=== PATIENT | female | born 1935 | race Caucasian/White ===

== ENCOUNTER → 2017-05-17 | Outpatient (CLI) | payer MEDICARE, BC ==
[~2017-05-17] MED LIST: ACET-1359 PO; LISI-327 PO; SENN1TAB6 PO; allegra PO; aspirin PO; levothyroxine PO
--- NOTE | 2017-05-17 17:33 | RADRPT ---
PROCEDURE: Right knee radiographs. CLINICAL INDICATION: Right knee pain. TECHNIQUE: Three views. Weight bearing. Frontal, lateral, and patellar view. COMPARISON: No prior studies are available for comparison. FINDINGS: There is no fracture or dislocation. The soft tissues are normal. There are degenerative changes with osteophytes arising from all 3 joint compartment margins. There is medial joint compartment narrowing and subarticular sclerosis. There is lateral patellofemoral joint compartment narrowing and mild deformity. There is no lytic or blastic lesion. There is no radiopaque foreign body. IMPRESSION: 1. Moderate to severe degenerative changes of the right knee. 2. No acute abnormality. RPTAT: QQ .Jayy Pina MD, Date Time Electronically viewed and signed by .Jayy Pina MD, on 05/17/2017 17:33 .R/
--- NOTE | 2017-05-18 05:06 | HKNOTE ---
DATE OF SERVICE: 05/17/2017 MAIN COMPLAINT: Pain in the right knee. HISTORY OF MAIN COMPLAINT: Patient is an 81-year-old female, who has had rheumatoid arthritis for 54 years. Incidentally, she developed the beginnings of the arthritis the day she got . She is under the care of a bait maker at [facility]. He put her on a prolonged course of aspirin. She developed pain in the right knee 3-1/2 years ago. The pain has been much worse in the past 6 months. She has been under the care of Dr. Nick Green at the [facility] [place]. He has given her multiple cortisone injections, as well as multiple Eufflexa injections into the right knee. These have not helped very much (the injections were given over a period of 3 years). PRESENT COMPLAINTS: The pain in her right knee is present every day and occurs with every step that she takes. The pain is localized to the knee without radiation up or down the leg. Pain varies between moderate to severe. Pain is aggravated by walking, weightbearing and stair climbing. She cannot walk more than a quarter of a block without stopping. She gets night pain. She takes Extra-Strength Tylenol or ibuprofen for the pain. She also ices the knee (she states that she has a high pain tolerance). She does not have any back pain or back problems. She has no numbness or tingling in her legs. She uses a cane. She limps some of the time. She does not have a shoe lift. She cannot clip her toenails or tie her shoelaces on the right side. PAST ORTHOPEDIC HISTORY: 1. Right shoulder replacement by Dr. Heller 2013. 2. Shoulder replacement by Dr. Manuel at the [facility] [place]. 3. Rotator cuff repair, left shoulder, 2003. 4. Rotator cuff repair, Dr. Cruz [place] 2000 and 2001. PRIOR CORTISONE INTAKE: Patient has taken it by mouth for prolonged periods of time, but no longer is on any. ALCOHOL INTAKE: None. OTHER JOINT PROBLEMS: "My left knee is also [id number]." BLOOD TESTS FOR ARTHRITIS: Yes (rheumatoid arthritis). PRIOR INJURIES TO HIPS AND KNEES: None. WORK STATUS: Patient is a retired homemaker. PAST MEDICAL HISTORY: Hypertension. PAST SURGICAL HISTORY: As noted above, all orthopedic operations. DRUG ALLERGIES: Penicillin (gets hives). Sulfa drugs. MEDICATIONS: 1. Lisinopril. 2. Johnna. 3. Levothyroxine. 4. Aspirin. 5. Multivitamins. 6. PreserVision. 7. Calcium citrate. 8. Atorvastatin. 9. Effexor. 10. Vagifem tablets. FAMILY HISTORY: Father at 70 of unstated cause. Mother at 52 of melanoma. SYSTEMS REVIEW: Failing vision from macular degeneration, hypertension, 2 pregnancies; otherwise, negative. HABITS: She does not smoke or drink alcoholic beverages. CORPORATE ETHICS OFFICER: Dr. Cisco Keene, [address] [facility], [place] [address]. PHYSICAL EXAMINATION: GENERAL: Patient is an extremely fit-looking, but overweight female. She looks at least 10 years younger than her stated age. She comes in with her , Melo Marques, who has been a patient of mine for a long time. I have performed bilateral knee replacements and a hip replacement on him, all of which he is very pleased with. Note, that she is referred in by her . VITAL SIGNS: Height 5 foot 5 inches. Weight 220 pounds. Blood pressure 160/70, temperature 98.2. HIPS: Both hips have a full range of motion without pain or tenderness anywhere on either hip. KNEES: Right knee: Varus alignment. Extension lacks 15 degrees. Flexion lacks 25 degrees. Marked pain on attempting further flexion or extension. All ligaments intact. 1+ effusion. Tender over the medial joint line. Multiple small scars (unexplained). 4+ crepitus in the knee and under patella. Examination of the left knee: Varus alignment. Extension is full. Flexion lacks 10 degrees. Marked pain on attempting further flexion or extension. All ligaments intact. 1+ effusion. Tender over the medial joint line. Multiple small scars (unexplained). 4+ crepitus in the knee and under patella. IMAGING: Plain x-rays of the right knee obtained today at the [facility] were reviewed. These show bone-on- bone degenerative osteoarthritis of the medial compartment, with classic secondary signs, including subchondral sclerosis, small osteophyte formation and no interosseous cysts. The patellofemoral joint shows narrowing and the patella is subluxed laterally. DIAGNOSES: 1. Extremely severe and sympathetic degenerative osteoarthritis of the right knee. 2. Degenerative osteoarthritis of the left knee. 3. Hypertension. 4. History of dislocated left shoulder. 5. History of rotator cuff tear. 6. Allergic to penicillin. 7. Allergic to sulfa drugs. MANAGEMENT: Patient was advised that she will certainly need to have a right knee replacement sometime in the near future. She can expect the arthritis to get worse. Certainly it will not improve regardless of the treatment provided. The operation of total knee replacement was discussed with her and her in a fair amount of detail, including some of the major recent developments. The actual operation was discussed with them to explain exactly why the results in recovery are so much better now than they were a few years ago. The patient is given a copy of my booklet, Knee Arthritis, Knee Replacement Surgery. My plant attendant or assistant operator, Morales, will schedule her surgery to be performed in the near future. Dictated By: Alec Mireles MD /patrick/aris /Document#: [id number]
== END | disposition home or self-care (01) ==
LOC: HKI 14:58
DX: M17.0 Bilateral primary osteoarthritis of knee (principal); I10 Essential (primary) hypertension
CPT/HCPCS: 73562; G0463

== ENCOUNTER → 2017-06-13 | Outpatient (CLI) | payer MEDICARE, BC ==
[~2017-06-13] MED LIST changes: +ATOR10TA65 PO; +CALC-134 PO; +ESTR10TA VAGINAL; +FLUT16SP17 NASAL; +MULT-761 PO; +VENL75TA2 PO
== END | disposition home or self-care (01) ==
LOC: HKI 13:20
DX: Z01.818 Encounter for other preprocedural examination (principal); M17.11 Unilateral primary osteoarthritis, right knee
CPT/HCPCS: G0463

== ENCOUNTER 2017-06-14 05:32 | Inpatient (IN) | payer MEDICARE, BC ==
--- NOTE | 2017-06-08 09:02 | PREOPHP ---
DATE OF ADMISSION: 06/14/2017 Patient to have surgery with Dr. Alec Mireles 06/14/2017. REASON FOR MEDICAL CONSULTATION: Consultation requested by Dr. Alec Mireles for evaluation and clearance of an 81-year-old woman about to undergo surgery. Thank you, Dr. Mireles, for allowing us to participate in the care of this patient. Lillian Marques is an 81-year-old woman, issues with her right knee, currently being admitted for correction of the above problem. SURGICAL HISTORY: Included 2 knee surgeries on the left side, one arthroscopic and one open, as well as 2 C-sections and a hysterectomy. She also had a reverse right total shoulder replacement done and had bunion surgery and hammertoe surgery. Other than that, she has been relatively healthy. Has no medical hospitalizations to speak of. Has not broken any bones. MEDICATIONS: She is currently taking the following medications: 1. Lisinopril 20/12.5, 2 a day. 2. Johnna 60 mg 1 a day. 3. Levothyroxine 0.125 mcg 2 daily. 4. Aspirin 325, mg 2 daily. 5. Atorvastatin 10 mg a day. 6. Effexor 75 mg a day. 7. Vagifem tablets 1 a week 10 mcg. 8. Flonase 15 mcg 1 inhalation per day. 9. Some eye drops. 10. Some vitamins. 11. Supplements. ALLERGIES: SHE IS ALLERGIC TO: PENICILLIN. SULFA. SOCIAL HISTORY: The patient is , has 2 children and 5 grandchildren. All in good health. She does not smoke or drink alcohol. Does drink coffee. 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 FAMILY HISTORY: Both parents are . Father at 70 of melanoma. Mother at age 52 of a stroke, had hypertension and had rheumatic fever when she was younger. One brother is alive and well. There is a family history of heart, cancer, hypertension, and stroke. No diabetes or thyroid. REVIEW OF SYSTEMS: HEENT: Denies any significant headaches. CARDIORESPIRATORY: Denies any chest pain or shortness of breath. GASTROINTESTINAL: No melena or hematemesis. GENITOURINARY: No urgency frequency. GYNECOLOGIC: Post hysterectomy. MUSCULOSKELETAL: Positive for right knee pain. NEUROPSYCHIATRIC: Mild anxiety/depression, well controlled with her Effexor. GENERAL HEALTH: Has been good. PHYSICAL EXAMINATION: VITAL SIGNS: The patient's blood pressure was 128/70, pulse was 76 and regular, respirations were 18, temperature 98.2. Height 5 feet 5 inches, weight 224 pounds. GENERAL: Patient was noted to be a well-developed, well- nourished female, alert and cooperative, in no apparent acute distress. Oriented to time, place, and person. HEENT: Head was atraumatic. The eyes: Pupils were equal, reactive to light and accommodation. Fundi were benign. Tympanic membranes were unremarkable. Nose was negative. Mouth was unremarkable. Fair oral hygiene was present. NECK: Supple without any rigidity. Trachea was midline. Thyroid was unremarkable. Neck veins were flat. Carotid pulses were equal. No bruits were heard. BACK: Exam was unremarkable. CHEST: Symmetrical. BREAST AND AXILLARY: Exam did not reveal any masses. LUNGS: Clear to percussion and auscultation. HEART: PMI is at the 5th intercostal space at the midclavicular line. Regular sinus rhythm was noted. No significant murmurs, rubs, gallops being elicited. ABDOMEN: Soft. Good bowel sounds were noted. No significant organomegaly masses or tenderness. Scar from prior surgery was noted. GENITALIA: Normal female external genitalia. RECTAL: Per transit department clerk and PCP up-to-date. EXTREMITIES: Did not reveal any clubbing, edema, or cyanosis. Scars from prior surgery are noted. Peripheral pulses were physiologic. SKIN: Moist and warm without any eruptions. No gross lymphadenopathy was noted. NEUROLOGIC: Exam was grossly intact. IMPRESSION: 1. Degenerative joint disease, right knee. 2. Hypertension. 3. Hyperlipidemia. 4. Hypothyroidism. 5. Metabolic syndrome. 6. Stable health LABORATORY: Review of laboratory and other data revealed the following. Patient's electrolytes basically normal. Glucose, BUN, creatinine, liver function tests, serum iron, CBC, UA, PT and PTT were normal. Patient's EKG revealed minor ST-T wave changes, but basically normal. Chest x-ray revealed status post right shoulder replacement, degenerative joint disease, no acute infiltrates and no acute cardiopulmonary changes being noted. DISCUSSION: Dr. Mireles, I see no contraindications to the patient undergoing current proposed surgery, and under desired form of anesthesia. Follow her along with you during her stay at [facility]. Thank you again Dr. Mireles for allowing us to participate in care of this patient. Dictated By: David Tripathi MD /patrick/aris /Document#: [id number]
[2017-06-14] VITALS (23 sets, daily range): BP systolic 102–164; BP diastolic 52–100; PULSE 74–100; RESP 11–24; Ht 165.1 cm; Wt 103.0 kg
[~2017-06-14] VITALS: Ht 165.1 cm; Wt 103.0 kg
[~2017-06-14 05:32] MED LIST changes: -ATOR10TA65 PO; -CALC-134 PO; -ESTR10TA VAGINAL; -FLUT16SP17 NASAL; -MULT-761 PO; -VENL75TA2 PO
[2017-06-14] MEDS ORDERED: KNEE PAIN COCKTAIL VANCO INJ SCH ×6 (06:00)
[2017-06-14] MEDS ORDERED: DEXAMETHASONE 4 MG/ML 1 ML INJ IV ONE (06:00)
[2017-06-14] MEDS ORDERED: oxyCODONE (CR) 10 MG TAB [oxyCONTIN] PO ONE (06:00)
[2017-06-14] MEDS ORDERED: LACTATED RINGER'S 1,000 ML IV* SCH (06:00)
[2017-06-14] MEDS ORDERED: ACETAMINOPHEN 1000MG/100ML IV 100 ML IVPB ONE (06:00)
[2017-06-14] MEDS ORDERED: VANCOMYCIN 1 GM (PMX) 250 ML IVPB ONE (06:00)
[2017-06-14] MEDS ORDERED: TRANEXAMIC ACID 2,000 MG in SOD CHLORIDE 0.9% 100 ML IVPB ONE (06:00)
[2017-06-14] MEDS ORDERED: LANSOPRAZOLE 30 MG CAP PO ONE (06:00)
[2017-06-14] MEDS ORDERED: ONDANSETRON 4 MG INJ IV ONE (06:00)
[2017-06-14] MEDS ORDERED: PROPOFOL 20 ML ONE (06:14)
[2017-06-14] MEDS ORDERED: MIDAZOLAM 1 MG/ML 2 ML INJ ONE (06:14)
[2017-06-14] MEDS ORDERED: DEXAMETHASONE 4 MG/ML 1 ML INJ ONE (06:14)
[2017-06-14] MEDS ORDERED: NEOSTIGMINE 3 MG/3 ML SYRINGE ONE (06:14)
[2017-06-14] MEDS ORDERED: GLYCOPYRROLATE 0.4 MG INJ ONE (06:14)
[2017-06-14] MEDS ORDERED: FENTAnyl 50 MCG/ML VIAL ONE (06:14)
[2017-06-14] MEDS ORDERED: ROCURONIUM 50 MG INJ ONE (06:14)
[2017-06-14] MEDS ORDERED: LIDOCAINE 2% (SDV) 5 ML INJ ONE (06:14)
[2017-06-14] MEDS ORDERED: ONDANSETRON 4 MG INJ ONE (06:15)
[2017-06-14] MEDS ORDERED: SUGAMMADEX SODIUM 200 MG/2 ML VIAL IV ONE (06:15)
[2017-06-14] MEDS ORDERED: LIDOCAINE 2%/EPI 30 ML INJ ONE (06:21)
[2017-06-14] MEDS ORDERED: LABETALOL HCL 20MG INJ IV PRN (06:30)
[2017-06-14] MEDS ORDERED: hydrALAzine 20 MG INJ IV PRN (06:30)
[2017-06-14] MEDS ORDERED: EPHEDrine SULFATE 50 MG/5 ML SYG IV PRN (06:30)
[2017-06-14] MEDS ORDERED: ATROPINE 1 MG/10 ML SYRINGE IV PRN (06:30)
[2017-06-14] MEDS ORDERED: DIPHENHYDRAMINE 50 MG INJ IV PRN (06:30)
[2017-06-14] MEDS ORDERED: MIDAZOLAM 1 MG/ML 2 ML INJ IV PRN (06:30)
[2017-06-14] MEDS ORDERED: HYDROmorphONE (0.2 MG/ML) 10ML SYG IV PRN ×3 (06:30)
[2017-06-14] MEDS ORDERED: FENTAnyl 50 MCG/ML VIAL IV PRN ×2 (06:30)
[2017-06-14] MEDS ORDERED: MEPERIDINE 25 MG INJ IV PRN (06:30)
[2017-06-14] MEDS ORDERED: OXYCODONE/ACETAMINOPHEN (5/325) TAB PO PRN ×2 (06:30)
[2017-06-14] MEDS ORDERED: ONDANSETRON 4 MG INJ IV PRN (06:30)
[2017-06-14] MEDS ORDERED: morphine (1 MG/ML) 10ML SYRINGE IV PRN ×3 (06:30)
[2017-06-14] MEDS ORDERED: BACITRACIN 50000 UNITS INJ ONE (06:41)
--- NOTE | 2017-06-14 06:44 | HPN ---
Date/Time of Note Date/Time of Note DATE: 06/14/17 TIME: 06:44 Interval H&P Admission Note Pt. seen H&P reviewed: No system changes ARGELIA VARGAS PA-C Jun 14, 2017 06:44
[2017-06-14] MEDS ORDERED: ROPIVACAINE 0.2% 100 ML ONE (06:52)
[2017-06-14] MEDS ORDERED: VANCOMYCIN 1 GM INJ ONE (06:52)
[2017-06-14] MEDS ORDERED: TOBRAMYCIN 1.2 GM POWDER ONE (06:52)
[2017-06-14] MEDS ORDERED: METHYLENE BLUE 1% 10 ML INJ ONE (06:52)
[2017-06-14] MEDS ORDERED: POLYMYXIN B 500000 UNIT INJ ONE (06:52)
[2017-06-14] MEDS ORDERED: BUPIVACAINE 0.25% (MPF) 30 ML INJ ONE ×2 (06:53→08:11)
[2017-06-14] MEDS ORDERED: SUCCINYLCHOLINE CHLORIDE 100 MG/5 ML SYG IV ONE (07:00)
[2017-06-14] MEDS ORDERED: FLUT16SP17 NASAL (07:07)
[2017-06-14] MEDS ORDERED: ATOR10TA65 PO (07:07)
[2017-06-14] MEDS ORDERED: VENL75TA2 PO (07:07)
[2017-06-14] MEDS ORDERED: CALC-134 PO (07:07)
[2017-06-14] MEDS ORDERED: MULT-761 PO (07:07)
[2017-06-14] MEDS ORDERED: ESTR10TA VAGINAL (07:07)
[2017-06-14] MEDS ORDERED: SOD CHLORIDE 0.9% 50 ML, TRANEXAMIC ACID 2,000 MG IRR SCH ×2 (07:30)
[2017-06-14] MEDS ORDERED: BUPIVACAINE 0.5%/EPI (SDV) 10 ML INJ ONE (08:11)
[2017-06-14] MEDS ORDERED: ROPIVACAINE 0.2% 100ML BAG INJ ONE (09:13)
[2017-06-14] MEDS ORDERED: FUROSEMIDE 20 MG INJ ONE (09:52)
[2017-06-14] MEDS ORDERED: KETOROLAC 30 MG INJ ONE (10:29)
--- NOTE | 2017-06-14 11:24 | PDOCDIS ---
Discharge Instructions DIAGNOSIS Discharge Diagnosis Status Post Right Total Knee Replacement CONDITION Patient Condition: Stable HOME CARE INSTRUCTIONS: Diet Instructions: Regular ACTIVITY: Activity Restrictions: Slowly Increase Activity Rest between Activity Avoid heavy lifting No Sexual Activity Do not Drive Do not operate Machinery Do not operate Power Tool Avoid Heavy Housework Keep Limb Elevated (at rest with Ice therapy) Weight Bearing (as tolerated with front wheeled walker) Bathing Restrictions: Shower (Using tegaderm withpad. Apply prior to shower and remove after shower when area is dry. Repeat these steps until violet are removed around 10 days.) FOLLOW UP/APPOINTMENTS Follow-up Plan 07/04/17 at 10:45AM ARGELIA VARGAS PA-C Jun 14, 2017 11:24
[2017-06-14] MEDS ORDERED: COUMADIN NOTE XX SCH (11:30)
[2017-06-14] MEDS ORDERED: BISACODYL 10 MG SUPP PR PRN (11:30)
[2017-06-14] MEDS ORDERED: MEPERIDINE 10 MG/ML 30 ML PCA IV PRN (11:30)
[2017-06-14] MEDS ORDERED: DIPHENHYDRAMINE 50 MG INJ IM PRN (11:30)
[2017-06-14] MEDS ORDERED: MAGNESIUM HYDROXIDE 30ML CUP PO PRN (11:30)
[2017-06-14] MEDS ORDERED: HYDROmorphONE 0.2 MG/ML PCA IV PRN (11:30)
[2017-06-14] MEDS ORDERED: ASPIRIN (EC) 325 MG TAB PO ONE ×2 (11:30→12:00)
[2017-06-14] MEDS ORDERED: SENNA/DOCUSATE NA (8.6MG/50MG) TAB PO PRN (11:30)
[2017-06-14] MEDS ORDERED: oxyCODONE 5 MG TAB PO PRN ×2 (11:30)
[2017-06-14] MEDS ORDERED: NALOXONE (0.4 MG/ML) INJ IV PRN (11:30)
[2017-06-14] MEDS ORDERED: NA PHOSPHATE/BIPHOS 133 ML ENEMA PR PRN (11:30)
[2017-06-14] MEDS ORDERED: DOCUSATE SODIUM 100 MG CAP PO ONE ×2 (11:30→12:00)
[2017-06-14] MEDS ORDERED: BETHANECHOL 25 MG TAB PO PRN (11:30)
[2017-06-14] MEDS: ONDANSETRON 4 MG INJ IV SCH ×3 (12:09→23:30)
[2017-06-14] MEDS: ACETAMINOPHEN 1000MG/100ML IV 100 ML IVPB SCH ×2 (12:09→19:06)
--- NOTE | 2017-06-14 12:21 | RADRPT ---
PROCEDURE: Right knee x-ray CLINICAL INDICATION: Knee pain TECHNIQUE: Two views of the right knee were obtained. COMPARISON: CR KNEE 05/17/2017 FINDINGS: The patient is status post total knee replacement . There are postsurgical changes in the subcutane ous soft tissues. There is a surgical drain in place. There is normal mineralization. No acute fracture or dislocation is seen. RPTAT: AA IMPRESSION: Postsurgical changes of the knee status post knee replacement. .Shayan Brunson MD, Date Time Electronically viewed and signed by .Shayan Brunson MD, on 06/14/2017 12:20 .S/
--- NOTE | 2017-06-14 12:50 | SIPON ---
Date/Time of Note Date/Time of Note DATE: 06/14/17 TIME: 12:43 Operative Report Preoperative Diagnosis Severe degenerative osteoarthritis of the right knee Postoperative Diagnosis Same Operation/Procedure Performed Right Knee Arthroplasty Surgeon: TUNG GALLOWAY MD market research assistant: ARGELIA VARGAS PA-C Estimated Blood Loss: 10 - 50 ml's Transfusion Required: no Specimen: none Grafts/Implants: none Complications: no TUNG GALLOWAY MD Jun 14, 2017 12:50
[2017-06-14] MEDS ORDERED: TRANEXAMIC ACID 1,030 MG in SOD CHLORIDE 0.9% 100 ML IVPB SCH ×2 (13:00→16:00)
--- NOTE | 2017-06-14 13:26 | RADRPT ---
PROCEDURE: XR Knee 2 Views. CLINICAL INDICATION: Right knee replacement. Intraoperative exam. TECHNIQUE: Intraoperative AP and lateral view of the right knee were obtained. The images reviewed on a PACS workstation. COMPARISON: May 17, 2017 FINDINGS: Intraoperative prosthetic components of a right knee replacement are identified and appear in grossl y appropriate position and alignment. No destructive bony lesions are observed. Soft tissue air is procedural in nature. IMPRESSION: Intraoperative components of a right knee replacement in grossly appropriate position and alignment. Please see procedure note for details. RPTAT: AA .Carlos Campbell MD, MD Date Time Electronically viewed and signed by .Carlos Campbell MD, MD on 06/14/2017 13:26 .P/
--- NOTE | 2017-06-14 13:27 | OPR ---
Date/Time of Note Date/Time of Note DATE: 06/14/17 TIME: 12:58 Operative Report Surgeon: ALEC MIRELES MD pharmacy affairs assistant: ARGELIA VARGAS PA-C Estimated Blood Loss: 10 - 50 ml's Transfusion Required: no Complications: no Indications Date of Operation: [] Surgeon: Alec Mireles MD Freight Flagman: Argelia Vargas PA-C Anesthesiologist: [Marcella] Preoperative Diagnosis: Exceedingly severe degenerative osteoarthritis of the [ ] knee. Postoperative Diagnosis: Exceedingly severe degenerative osteoarthritis of the [ R] knee. Operation Performed: Total knee replacement (arthroplasty of the knee, condylar plateau medial and lateral compartments with patella resurfacing, CPT 44371). Justification for Surgery: The knee was found to have an end-stage osteoarthritis. The patient is a very active 81-year-old diffuse lifestyles markedly affected by the arthritic knee. An extensive course of conservative care has been tried prior to embarking on the knee replacement operation. There can be no reasonable expectation that any further conservative treatment will make any improvement to this patient's pain level and lifestyle. The risks and complications of the surgery were discussed with the patient at the preoperative visit as well as the risks and possible complications of blood transfusion using hospital blood. The patient is agreeable to using hospital blood if needed. Description of Procedure: The patient was given intravenous antibiotics 1 hour prior to surgery. An epidural anesthetic was initiated in the ICU holding area. The patient was taken to the operating room and given a light general anesthetic. The leg, foot, and ankle were prepared and draped in the usual sterile fashion. The center of the ankle was marked at the midpoint between the 2 malleoli with a sterile marking pen. A tourniquet around the thigh was inflated to 250 mmHg after the leg had been exsanguinated using an Esmarch bandage. The tourniquet was inflated at the initiation of procedure for a short period and was then again reinflated at the time of cementing the components parts. The total tourniquet time was 55 minutes minutes. A longitudinal incision was made over the anterior aspect of the knee. The incision extended from the tibial tubercle to a point just above the patella. The medial capsule was exposed by sharp and blunt dissection, and was incised inch medial to the patella. A marking stitch was set on each side of the incision at the midpoint of the capsule so as to enable accurate reapproximation at the end of the operation. A vastus split was made in the vastus medialis extending from the superior pole of the patella for approximately 5 cm between the line with the muscle fibers. The ends of the muscle split at the patella were marked with a marking stitch on each side for later accurate reapproximation. The patella was reflected laterally and osteophytes around the brim of the patella were removed. Osteophytes along the lateral femoral condyle were removed so as to facilitate lateral reflection of the patella. Posterior medial osteophytes were removed on the lateral side as well, Sastry free of the lateral collateral ligament. Medial femoral osteophytes and posteromedial femoral osteophytes were also removed at this time. This allowed for the knee to be brought into a more normal alignment. A segment of bone was cut from the articular surface of the patella using a caliper to determine the exact thickness to be removed. The remaining thickness of the patella was 18 mm mm. The knee was flexed, and the patella was displaced laterally without eversion. Osteophyte in the femoral notch were removed. The remnants of the medial and lateral menisci were excised and the cruciate ligaments were excised. The medial collateral ligament was elevated as an osteo -periosteal flap from the proximal tibia. The distal end of the medial collateral ligament remained attached to the tibia throughout the operation. The tibia was retracted forward with Hohmann retractor, inserted posterior to the midpoint of the proximal tibia. The tibial jig was set in place in such a way as to align longitudinally with the anterior tibial spine, with the junction of the middle and medial 2/3 of the patella tendon and with the posterior intercondylar eminence of the tibia. An AP and lateral x-ray was obtained with the ligament jig in place. This showed that the alignment was satisfactory after some slight adjustments were made. The posterior slope of the tibia was set at 7 degrees. The tibial cutting block was attached to the proximal tibia with 2 Steinmann pins. An external alignment sarai was placed and the cutting block to confirm the alignment of the cutting block. An Georges Wing feeler gauge was now placed on the superior aspect of the cutting block to further confirm the posterior slope of the tibia in the depths of the cut to be made. An oscillating saw was used to remove an appropriate amount of bone from the proximal tibia with the healthy side being used to measure the cutting depth. The lateral femoral condyle of the distal femur was measured to determine the appropriate size for the femoral component. The anterior condyle of the femur was partially removed with a rongeur. A medium size cutting block was attached to the distal femur with 2 Steinmann pins through the pinholes in the block. The external alignment jig of this cutting block was lined up with the anterior surface of the femur and a central intercondylar hole for the intra -medullary sarai was drilled into the hole and the alignment block. The block was removed. A long Water pik nozzle was used to flush fat from the intramedullary canal. The appropriately sized cutting block was now attached to the femur by means of intramedullary sarai. The linking guide was inserted into the slot in the base of the femoral cutting block with the knee set at 90 degrees of flexion and with the linking guide set flush with the proximal tibial cut in order to set the appropriate rotational alignment on the femoral cutting block. Ligament balance was checked at this point and was found to be very satisfactory. Once the rotational alignment had been determined, and the ligaments found to be balanced, the femoral cutting block was secured to the distal femur with 2 Steinmann pins. The anterior and posterior cuts of the distal femur were made off the femoral cutting block. The cutting block was removed and a spacer block was used to measure the flexion gap which was found to be of 12.5 mm. The same block size without the femoral element was used with the leg extension to determine the amount of distal femur to be removed in the transverse plane. A 5 degree distal cutting block was now set on the femoral entry intramedullary sarai, and the sarai was inserted into the intramedullary canal. The appropriate amount of bone to be removed was determined. The femoral cutting block was pinned to the anterior surface of the femur with 2 Steinmann pins. The appropriate amount of bone was resected off the distal femur to give an extension gap equal to the thickness of the flexion gap. The cut needed to be repeated after initial cut in order to produce an extension gap the same size of the flexion gap. By using the appropriate cutting blocks, the rest of the femoral cuts were made. The femoral trial component was installed and was found to fit perfectly. The femoral trial component was removed. The proximal tibia was sized, and the appropriate tibial tray selected. The central fixation hole in the tibia was made using the tibial tray template and the appropriate instruments. The femoral tibial trials and the trial tibial insert were installed, and the patella was prepared to accept the 35 sized dome component. The trial components were all removed. The tourniquet was inflated. Soft tissues around the knee, especially the posterior capsule, were injected with mixture of Naropin, Toradol, morphine, and clonidine. The cut surfaces of the bones were cleaned with pulsatile Water Jet lavage and thoroughly dried. Sclerotic bone surfaces were drilled with a 1/8-inch drill. The tibial trial component was installed with the methyl methacrylate cement followed by the femoral component and finally the patellar component. Cement was used on all 3 components. The cement was finger packed into the cut surfaces of the bone and pressurized with a rubber dam in order to get good interdigitation of the cement into the bone. A lateral x-ray of the knee was obtained while the cement was hardening with the anticipated appropriate spacer trial in place. This showed that the knee was in []. Once the cement was hard, all extraneous cement was removed. The cut edges of the medial capsule were held together at the midpoint with a towel clip, and the knee was put through a full range of motion. The patella was found to track satisfactorily. A lateral release was required. At this point, the patella was round to track very well in the patellar groove of the femoral component. The knee was frequently irrigated with normal saline containing antibiotics with pulsatile lavage throughout the entire operation as a prophylactic measure against infection. Once the cement was hard, the tourniquet was released. Bleeding points were cauterized. The total tourniquet time was 50 it is. The patient's vital signs remained stable throughout the operation. The permanent rotating bearing was installed. Superficial and deep Hemovac drains were set in place. The wound was closed using interrupted Vicryl on the capsule with FiberWire used strategic points such as the attachment of the distal ends of the vastus medialis split, and the tibial tendon was also attached to the osteo--periosteal flap with FiberWire. The rest of the medial capsule was closed with interrupted Vicryl. A subcuticular stitch was inserted and violet were used on the skin. The usual sterile dressings were applied. A Dilip-Ribeiro compression dressing was applied after sterile cooling pad had been set in place against the deep tissue by sterile cast padding. The patient's condition at the end of the procedure was satisfactory. Vital signs remained stable throughout the operation. The patient returned to the recovery room in stable condition. X-rays were obtained in the recovery room. Calf pumps were applied to both legs in the operating room. There were no problems or complications as far as we know. The sponge and instrument count were correct. Component Information: Knee Implant Type: LCS. Femoral Component Size: Ended plus Tibial Component Size: 2.5 Patellar Component Size: [] Tibial Insert: [] Implant Tucking Machine Operator: [employer] of [place], [place]. Total Tourniquet Time: [] Total Blood Loss: [150] Dictacted By: Alec Mireles MD [facility] [place] [facility] is as good as uses numerous missed and at the time to go back and retype the entire thing ALEC MIRELES MD Jun 14, 2017 13:26
[2017-06-14] MEDS: DEXTROSE 5%-LR 1,000 ML IV SCH ×2 (13:58→23:54)
[2017-06-14] MEDS: FLUTICASONE 0.05% 16 GM NAS SPRAY NASAL SCH (14:30)
[2017-06-14] MEDS ORDERED: ESTRADIOL 10 MCG VAGINAL SCH (14:30)
--- NOTE | 2017-06-14 14:52 | CONS ---
Date/Time of Note Date/Time of Note DATE: 06/14/17 TIME: 14:42 Consult Date/Type/Reason Admit Date/Time Jun 14, 2017 at 05:32 Initial Consult Date 06/07/2017 Type of Consultation: internal medicine Reason for Consultation pre-op medical evaluation and clearance Ordering Provider: TUNG GALLOWAY MD Subjective post op total knee replacement right knee alert getting ready to walk with pt no complaints Objective Vital Signs Date Time Temp Pulse Resp B/P Pulse Ox O2 Delivery O2 Flow Rate FiO2 06/14/17 12:29 96 11 155/65 94 Room Air 06/14/17 11:35 98.0 Exam vss heent negative lungs clear heart regular rhythm right lower extremity dressing post op Results/Medications Medications Current Medications Dextrose/Lactated Ringer's (D5-Lr) 1,000 ml @ 80 mls/hr [id number] IV Last administered on 06/14/17 13:58; Admin Dose 80 MLS/HR; Start 06/14/17 at 11:24 Hydromorphone HCl (Dilaudid PATCH DRILLER) Q4PCA PRN IV SEVERE PAIN 8-10; Start 06/14/17 at 11:30; Stop 06/15/17 at 11:29 Meperidine HCl (Demerol PATCH DRILLER) Q4PCA PRN IV SEVERE PAIN 8-10; Start 06/14/17 at 11:30; Stop 06/15/17 at 11:29 Oxycodone HCl (Roxicodone) 20 mg Q3H PRN PO PAIN LEVEL 8-10; Start 06/14/17 at 11:30 Oxycodone HCl (Roxicodone) 10 mg Q3H PRN PO PAIN LEVEL 4-7; Start 06/14/17 at 11 :30 Oxycodone HCl 5 mg 5 mg Q3H PRN PO PAIN LEVEL 1-3; Start 06/14/17 at 11:30 Acetaminophen (Ofirmev 1000mg/ 100ml Iv) 100 ml @ 400 mls/hr Q8H IVPB Last administered on 06/14/17 12:09; Admin Dose 400 MLS/HR; Start 06/14/17 at 11:30; Stop 06/16/17 at 03:44 Zolpidem Tartrate (Ambien) 5 mg HS PRN PO INSOMNIA; Start 06/14/17 at 11:30 Ondansetron HCl 4 mg 4 mg Q6H IV Last administered on 06/14/17t 12:09; Admin Dose 4 MG; Start 06/14/17 at 11:30; Stop 06/15/17 at 05:31 Vancomycin HCl (Vancocin) 250 ml @ 125 mls/hr Q12H IVPB ; Start 06/14/17 at 18: 00; Stop 06/15/17 at 07:59 Miscellaneous Information (Note) NOTE XX ; Start 06/14/17 at 11:30 Aspirin (Ecotrin) 325 mg BID PO ; Start 06/15/17 at 09:00 Celecoxib (Celebrex) 200 mg BID PO ; Start 06/15/17 at 09:00 Dexamethasone (Decadron) 4 mg DAILY@07 IV ; Start 06/15/17 at 07:00; Stop at 06:59 Pantoprazole (Protonix Tab) 40 mg DAILY@06 PO ; Start 06/16/17 at 06:00 Docusate Sodium/ Ferrous Fumarate (Dannielle-Sequels) 1 tab BID PO ; Start 06/15/17 at 09:00 Docusate Sodium (Colace) 200 mg BID PO ; Start 06/15/17 at 09:00; Stop 06/18/17 at 08:59 Simethicone (Mylicon) 80 mg TID PRN PO DISTENSION/GAS/BLOATING; Start 06/14/17 at 11:30 Senna/Docusate Sodium (Senokot-S) 2 tab BID PRN PO CONSTIPATION; Start 06/14/17 at 11:30 Magnesium Hydroxide (Milk Of Mag) 30 ml HS PRN PO CONSTIPATION; Start 06/14/17 at 11:30 Bisacodyl (Dulcolax Supp) 10 mg DAILY PRN IN CONSTIPATION; Start 06/14/17 at 11: 30 Sodium Biphosphate/ Sodium Phosphate (Fleet Enema) 133 ml DAILY PRN IN CONSTIPATION; Start 06/14/17 at 11:30 Diphenhydramine HCl (Benadryl) 25 mg Q4H PRN IM ITCHING OR RASH; Start 06/14/17 at 11:30 Ketorolac Tromethamine (Toradol) 15 mg DAILY@06 PRN INJ ADMINSTER BY SURGEON ONLY; Start 06/15/17 at 06:00; Stop 06/19/17 at 05:59 Naloxone HCl 0.2 mg 0.2 mg Q2M PRN IV DECREASED REPIRATORY RATE; Start 06/14/17 at 11:30 Tranexamic Acid/ Sodium Chloride (Tranexamic Acid/ NS) 110.3 ml @ 200 mls/hr ONCE@16 IVPB ; Start 06/14/17 at 16:00; Stop 06/14/17 at 16:34 Bupivacaine HCl (Marcaine 0.25% (Mpf) 30 ml) 30 ml DAILY INJ ; Start 06/15/17 at 06:00; Stop 06/18/17 at 05:59 Atorvastatin Calcium (Lipitor) 10 mg QHS PO ; Start 06/14/17 at 21:00 Fluticasone Propionate (Flonase 0.05% Nasal) 1 spray DAILY NASAL ; Start at 14:30 Multivitamins Therapeutic (Theragran) 1 tab DAILY PO ; Start 06/15/17 at 09:00 Venlafaxine HCl (Effexor Xr) 75 mg DAILY PO ; Start 06/15/17 at 09:00 Miscellaneous Information 1 tab BID PO ; Start 06/14/17 at 21:00; Status UNV Loratadine (Claritin) 10 mg DAILY PO ; Start 06/15/17 at 09:00 Levothyroxine Sodium (Synthroid) 125 mcg DAILY@06 PO ; Start 06/15/17 at 06:00 Assessment/Plan Chief Complaint/Hosp Course post op doing well Problems: Additional Assessment/Plan 1 . will renew pre op meds re bp ,lipids etc. 2 follow with you re general medical management will folloiw [facility] you [facility] MD Jun 14, 2017 14:51
[2017-06-14] MEDS: ATORVASTATIN 10 MG TAB PO SCH (20:33)
[2017-06-14] MEDS: VANCOMYCIN 1 GM (PMX) 250 ML IVPB SCH (20:33)
[2017-06-14] MEDS ORDERED: LISINOPRIL HYDROCHLOROTHIAZIDE PO SCH (21:00)
[2017-06-14] MEDS: ZOLPIDEM 5 MG TAB PO PRN (23:58)
[2017-06-15] MEDS: ACETAMINOPHEN 1000MG/100ML IV 100 ML IVPB SCH ×3 (03:07→20:23)
[2017-06-15] MEDS: ONDANSETRON 4 MG INJ IV SCH (05:30)
[2017-06-15 05:33] LABS: BASOPHILS % 0.1 % (0.0-2.0); HEMATOCRIT 30.8 % (37.0-47.0); HEMOGLOBIN 9.8 g/dl (12.0-16.0); LYMPHOCYTES # 1.1 10^3/ul (0.8-2.9); LYMPHOCYTES % 11.2 % (15.0-51.0); MEAN CORPUSCULAR HEMOGLOBIN 29.8 pg (29.0-33.0); MEAN CORPUSCULAR HGB CONC 31.8 g/dl (32.0-37.0); MEAN CORPUSCULAR VOLUME 93.6 fl (82.0-101.0); MEAN PLATELET VOLUME 10.2 fl (7.4-10.4); MONOCYTE # 0.5 10^3/ul (0.3-0.9); MONOCYTES % 5.5 % (0.0-11.0); NEUTROPHILS % 82.6 % (39.0-77.0); PLATELET COUNT 154 10^3/UL (140-415); RED BLOOD COUNT 3.29 10^6/ul (4.20-5.40); RED CELL DISTRIBUTION WIDTH 14.3 % (11.5-14.5); WHITE BLOOD COUNT 9.9 10^3/ul (4.8-10.8)
[2017-06-15 05:57] LABS: ALBUMIN 2.8 g/dl (3.3-4.9); ALBUMIN/GLOBULIN RATIO 1.12; BILIRUBIN,INDIRECT 0.2 mg/dl (0-1.1); BILIRUBIN,TOTAL 0.2 mg/dl (0.2-1.3); CALCIUM 8.3 mg/dl (8.4-10.2); CREATININE 1.16 mg/dl (0.44-1.00); POTASSIUM 4.3 mmol/L (3.5-5.1); TOTAL PROTEIN 5.3 g/dl (6.1-8.1)
[2017-06-15] MEDS: BUPIVACAINE 0.25% (MPF) 30 ML INJ INJ SCH (06:00)
[2017-06-15] MEDS ORDERED: KETOROLAC 15 MG INJ INJ PRN (06:00)
[2017-06-15] MEDS: DEXAMETHASONE 4 MG/ML 1 ML INJ IV SCH (06:38)
[2017-06-15] MEDS: LEVOTHYROXINE 125 MCG TAB PO SCH (06:38)
[2017-06-15] MEDS: VANCOMYCIN 1 GM (PMX) 250 ML IVPB SCH (06:39)
[2017-06-15 06:50] VITALS: BP 118/69; PULSE 68; RESP 18
[2017-06-15 07:22] VITALS: BP 123/59; RESP 20
--- NOTE | 2017-06-15 08:01 | PN ---
Date/Time of Note Date/Time of Note DATE: 06/15/17 TIME: 07:58 Assessment/Plan VTE Prophylaxis VTE Prophylaxis Intervention: ambulation, anti-embolic stocking, SCD's, other ( Aspirin 325 mg twice daily) Lines/Catheters IV Catheter Type (from Nrsg): Peripheral IV Gan in Place (from Nrsg): Yes Assessment/Plan Assessment/Plan -Hemovac Removed Today. 520 cc output. -Pain Cocktail not given today as Marcaine 0.25% is not available to the hospital shortage. -Pain Meds as needed -Dress change performed today -OOB with PT -ASA/SCDs for DVT Prophylaxis -Continue monitoring with Internal Medicine -Patient Stable Subjective 24 Hr Interval Summary 81-year-old female postop day 1 status post right total knee arthroplasty. No complaints overnight. No acute events. Patient denies any chest pain/tightness , shortness of breath, calf pain. Patient has been up and walking with physical therapy which has been going well, per patient account. Patient states that her range of motion is much better than what she had hoped status post surgery. Pain Control: well controlled Exam/Review of Systems Vital Signs Vitals Vital Signs Date Time Temp Pulse Resp B/P Pulse Ox O2 Delivery O2 Flow Rate FiO2 06/15/17 07:22 97.4 74 20 123/59 95 06/15/17 06:50 Nasal Cannula 2.0 Intake and Output 06/14/17 06/14/17 06/15/17 15:00 23:00 07:00 Intake Total 2110.3 ml 1520.3 ml 1950 ml Output Total 570 ml 1200 ml 1330 ml Balance 1540.3 ml 320.3 ml 620 ml Exam Free Text/Dictation -Hemovac: Intact. 520 cc output -Pain Cocktail Drains: Intact -Incision: Clean, Dry and Intact without any redness or drainage -5/5 Tibialis Anterior, EHL Gastrocnemius/Soleus and Peroneals -Active extension is up to 0. Active flexion is up to 90. No pain with range of motion. -Normal Sensation -Palpable DP/PT, Capillary Refill <2 secs -No Distal Edema -Negative Edmar Sign/No calf pain -Toes Freely Movable Constitutional: alert, oriented, well developed Results Result Diagram: 06/15/17 0502 06/15/17 0502 ARGELIA VARGAS PA-C 7, 2017 08:01
--- NOTE | 2017-06-15 08:14 | CONS ---
Date/Time of Note Date/Time of Note DATE: 06/15/17 TIME: 08:10 Consult Date/Type/Reason Admit Date/Time Jun 14, 2017 at 05:32 Initial Consult Date 06/07/2017 Type of Consultation: internal medicine Reason for Consultation medical f/u and management Ordering Provider: TUNG GALLOWAY MD Subjective alert had a relatively good night looking forward to ambulating today Objective Vital Signs Date Time Temp Pulse Resp B/P Pulse Ox O2 Delivery O2 Flow Rate FiO2 06/15/17 07:22 97.4 74 20 123/59 95 06/15/17 06:50 Nasal Cannula 2.0 Intake and Output 06/14/17 06/14/17 06/15/17 15:00 23:00 07:00 Intake Total 2110.3 ml 1520.3 ml 1950 ml Output Total 570 ml 1200 ml 1330 ml Balance 1540.3 ml 320.3 ml 620 ml Exam vss heent negative lungs clear heart regular rhythm abdomen soft Results/Medications Result Diagram: 06/15/17 0502 06/15/17 0502 Results 24 hrs Laboratory Tests Test 06/15/17 05:02 White Blood Count 9.9 Red Blood Count 3.29 L Hemoglobin 9.8 L Hematocrit 30.8 L Mean Corpuscular Volume 93.6 Mean Corpuscular Hemoglobin 29.8 Mean Corpuscular Hemoglobin Concent 31.8 L Red Cell Distribution Width 14.3 Platelet Count 154 Mean Platelet Volume 10.2 Neutrophils % 82.6 H Lymphocytes % 11.2 L Monocytes % 5.5 Eosinophils % 0.0 Basophils % 0.1 Nucleated Red Blood Cells % 0.0 Neutrophils # (Manual) 8.2 H Lymphocytes # 1.1 Monocytes # 0.5 Eosinophils # 0.0 Basophils # 0.0 Nucleated Red Blood Cells # 0.0 Sodium Level 135 Potassium Level 4.3 Chloride Level 101 Carbon Dioxide Level 30 Anion Gap 8 Blood Urea Nitrogen 24 H Creatinine 1.16 H Glucose Level 153 Calcium Level 8.3 L Total Bilirubin 0.2 Direct Bilirubin 0.00 Indirect Bilirubin 0.2 Aspartate Amino Transf (AST/SGOT) 37 Alanine Aminotransferase (ALT/SGPT) 36 Alkaline Phosphatase 52 Total Protein 5.3 L Albumin 2.8 L Globulin 2.50 Albumin/Globulin Ratio 1.12 Medications Current Medications Dextrose/Lactated Ringer's (D5-Lr) 1,000 ml @ 80 mls/hr [id number] IV Last administered on 06/14/17 13:58; Admin Dose 80 MLS/HR; Start 06/14/17 at 11:24 Hydromorphone HCl (Dilaudid INSPECTOR TUBES) Q4PCA PRN IV SEVERE PAIN 8-10; Start 06/14/17 at 11:30; Stop 06/15/17 at 11:29 Meperidine HCl (Demerol INSPECTOR TUBES) Q4PCA PRN IV SEVERE PAIN 8-10; Start 06/14/17 at 11:30; Stop 06/15/17 at 11:29 Oxycodone HCl (Roxicodone) 20 mg Q3H PRN PO PAIN LEVEL 8-10; Start 06/14/17 at 11:30 Oxycodone HCl (Roxicodone) 10 mg Q3H PRN PO PAIN LEVEL 4-7; Start 06/14/17 at 11 :30 Oxycodone HCl 5 mg 5 mg Q3H PRN PO PAIN LEVEL 1-3; Start 06/14/17 at 11:30 Acetaminophen (Ofirmev 1000mg/ 100ml Iv) 100 ml @ 400 mls/hr Q8H IVPB Last administered on 06/15/17 03:07; Admin Dose 400 MLS/HR; Start 06/14/17 at 11:30; Stop 06/16/17 at 03:44 Zolpidem Tartrate (Ambien) 5 mg HS PRN PO INSOMNIA Last administered on 23:58; Admin Dose 5 MG; Start 06/14/17 at 11:30 Miscellaneous Information (Note) NOTE XX ; Start 06/14/17 at 11:30 Aspirin (Ecotrin) 325 mg BID PO ; Start 06/15/17 at 09:00 Celecoxib (Celebrex) 200 mg BID PO ; Start 06/15/17 at 09:00 Dexamethasone (Decadron) 4 mg DAILY@07 IV Last administered on 06/15/17 06:38; Admin Dose 4 MG; Start 06/15/17 at 07:00; Stop 06/18/17 at 06:59 Pantoprazole (Protonix Tab) 40 mg DAILY@06 PO ; Start 06/16/17 at 06:00 Docusate Sodium/ Ferrous Fumarate (Dannielle-Sequels) 1 tab BID PO ; Start 06/15/17 at 09:00 Docusate Sodium (Colace) 200 mg BID PO ; Start 06/15/17 at 09:00; Stop 06/18/17 at 08:59 Simethicone (Mylicon) 80 mg TID PRN PO DISTENSION/GAS/BLOATING; Start 06/14/17 at 11:30 Senna/Docusate Sodium (Senokot-S) 2 tab BID PRN PO CONSTIPATION; Start 06/14/17 at 11:30 Magnesium Hydroxide (Milk Of Mag) 30 ml HS PRN PO CONSTIPATION; Start 06/14/17 at 11:30 Bisacodyl (Dulcolax Supp) 10 mg DAILY PRN AR CONSTIPATION; Start 06/14/17 at 11: 30 Sodium Biphosphate/ Sodium Phosphate (Fleet Enema) 133 ml DAILY PRN AR CONSTIPATION; Start 06/14/17 at 11:30 Diphenhydramine HCl (Benadryl) 25 mg Q4H PRN IM ITCHING OR RASH; Start 06/14/17 at 11:30 Ketorolac Tromethamine (Toradol) 15 mg DAILY@06 PRN INJ ADMINSTER BY SURGEON ONLY; Start 06/15/17 at 06:00; Stop 06/19/17 at 05:59 Naloxone HCl (Narcan) 0.2 mg Q2M PRN IV DECREASED REPIRATORY RATE; Start at 11:30 Bupivacaine HCl (Marcaine 0.25% (Mpf) 30 ml) 30 ml DAILY INJ ; Start 06/15/17 at 06:00; Stop 06/18/17 at 05:59 Atorvastatin Calcium (Lipitor) 10 mg QHS PO Last administered on 06/14/17t 20:33 ; Admin Dose 10 MG; Start 06/14/17 at 21:00 Fluticasone Propionate (Flonase 0.05% Nasal) 1 spray DAILY NASAL ; Start at 14:30 Multivitamins Therapeutic (Theragran) 1 tab DAILY PO ; Start 06/15/17 at 09:00 Venlafaxine HCl (Effexor Xr) 75 mg DAILY PO ; Start 06/15/17 at 09:00 Miscellaneous Information 1 tab BID PO ; Start 06/14/17 at 21:00; Status UNV Loratadine (Claritin) 10 mg DAILY PO ; Start 06/15/17 at 09:00 Levothyroxine Sodium (Synthroid) 125 mcg DAILY@06 PO Last administered on t 06:38; Admin Dose 125 MCG; Start 06/15/17 at 06:00 Miscellaneous Information (*Order Clarification Bulletin) MEDICATION REQUIRES CLARIFICATION: Q6H XX ; Start 06/15/17 at 08:00 Assessment/Plan Chief Complaint/Hosp Course post op doing well Problems: Additional Assessment/Plan continue current medications will monitor H&H ,BP etc patient stable at this point JUANIS YANG MD Jun 15, 2017 08:14
[2017-06-15] MEDS: CELECOXIB 200 MG CAP PO SCH ×2 (08:29→20:24)
[2017-06-15] MEDS: ASPIRIN (EC) 325 MG TAB PO SCH ×2 (08:29→20:24)
[2017-06-15] MEDS: DOCUSATE SODIUM 100 MG CAP PO SCH ×2 (08:29→20:24)
[2017-06-15] MEDS: FERROUS FUMARATE (SR) TAB PO SCH ×2 (08:29→20:24)
[2017-06-15] MEDS: LORATADINE 10 MG TAB PO SCH (08:29)
[2017-06-15] MEDS: MULTIVITAMINS THERAPEUTIC TAB PO SCH (08:29)
[2017-06-15] MEDS: VENLAFAXINE (XR) 75 MG CAP PO SCH (08:29)
[2017-06-15] MEDS: FLUTICASONE 0.05% 16 GM NAS SPRAY NASAL SCH (08:30)
[2017-06-15] MEDS: DEXTROSE 5%-LR 1,000 ML IV SCH (12:24)
[2017-06-15 15:07] VITALS: BP 132/60; RESP 20
[2017-06-15 20:24] VITALS: BP 135/63; RESP 16
[2017-06-15] MEDS: ATORVASTATIN 10 MG TAB PO SCH (20:24)
[2017-06-15] MEDS: oxyCODONE 5 MG TAB PO PRN (22:39)
[2017-06-16] MEDS: DEXTROSE 5%-LR 1,000 ML IV SCH ×2 (00:36→13:24)
[2017-06-16 02:37] VITALS: BP 107/53; RESP 16
[2017-06-16] MEDS: ACETAMINOPHEN 1000MG/100ML IV 100 ML IVPB SCH (03:29)
[2017-06-16] MEDS: oxyCODONE 5 MG TAB PO PRN ×4 (03:35→19:55)
[2017-06-16 05:08] LABS: BASOPHILS % 0.2 % (0.0-2.0); EOSINOPHILS # 0.2 10^3/ul (0.0-0.5); EOSINOPHILS % 1.8 % (0.0-7.0); HEMATOCRIT 29.9 % (37.0-47.0); HEMOGLOBIN 9.6 g/dl (12.0-16.0); LYMPHOCYTES # 2.6 10^3/ul (0.8-2.9); LYMPHOCYTES % 30.2 % (15.0-51.0); MEAN CORPUSCULAR HEMOGLOBIN 30.2 pg (29.0-33.0); MEAN CORPUSCULAR HGB CONC 32.1 g/dl (32.0-37.0); MEAN PLATELET VOLUME 10.4 fl (7.4-10.4); MONOCYTE # 0.5 10^3/ul (0.3-0.9); NEUTROPHILS % 61.5 % (39.0-77.0); PLATELET COUNT 140 10^3/UL (140-415); RED BLOOD COUNT 3.18 10^6/ul (4.20-5.40); RED CELL DISTRIBUTION WIDTH 14.3 % (11.5-14.5); WHITE BLOOD COUNT 8.7 10^3/ul (4.8-10.8)
[2017-06-16] MEDS: LEVOTHYROXINE 125 MCG TAB PO SCH (05:48)
[2017-06-16] MEDS: PANTOPRAZOLE (EC) 40 MG TAB PO SCH (05:48)
[2017-06-16 05:58] LABS: ALBUMIN 2.8 g/dl (3.3-4.9); ALBUMIN/GLOBULIN RATIO 1.12; BILIRUBIN,INDIRECT 0.3 mg/dl (0-1.1); BILIRUBIN,TOTAL 0.3 mg/dl (0.2-1.3); CALCIUM 8.1 mg/dl (8.4-10.2); CREATININE 1.25 mg/dl (0.44-1.00); TOTAL PROTEIN 5.3 g/dl (6.1-8.1)
[2017-06-16] MEDS: DEXAMETHASONE 4 MG/ML 1 ML INJ IV SCH (06:55)
[2017-06-16 08:00] VITALS: BP 124/62; RESP 16
[2017-06-16] MEDS: ESTRADIOL 10 MCG XX SCH ×2 (08:00→16:00)
[2017-06-16] MEDS: [UNRECOGNIZED DRUG - OTHER] XX SCH ×2 (08:00→16:00)
[2017-06-16] MEDS: VENLAFAXINE (XR) 75 MG CAP PO SCH (08:54)
[2017-06-16] MEDS: LISINOPRIL 20 MG TAB PO SCH (08:54)
[2017-06-16] MEDS: DOCUSATE SODIUM 100 MG CAP PO SCH ×2 (08:54→19:56)
[2017-06-16] MEDS: MULTIVITAMINS THERAPEUTIC TAB PO SCH (08:54)
[2017-06-16] MEDS: ASPIRIN (EC) 325 MG TAB PO SCH ×2 (08:55→19:55)
[2017-06-16] MEDS: HYDROCHLOROTHIAZIDE 12.5 MG CAP PO SCH (08:55)
[2017-06-16] MEDS: FLUTICASONE 0.05% 16 GM NAS SPRAY NASAL SCH (08:56)
[2017-06-16] MEDS: FERROUS FUMARATE (SR) TAB PO SCH ×2 (08:56→19:55)
[2017-06-16] MEDS: LORATADINE 10 MG TAB PO SCH (08:56)
[2017-06-16] MEDS: CELECOXIB 200 MG CAP PO SCH ×2 (08:56→19:55)
[2017-06-16] MEDS: BUPIVACAINE 0.25% (MPF) 30 ML INJ INJ SCH (09:00)
--- NOTE | 2017-06-16 09:39 | CONS ---
Date/Time of Note Date/Time of Note DATE: 06/16/17 TIME: 09:35 Consult Date/Type/Reason Admit Date/Time Jun 14, 2017 at 05:32 Initial Consult Date 06/07/2017 Type of Consultation: internal medicine Reason for Consultation medical f/u and management Ordering Provider: TUNG GALLOWAY MD Subjective feel well walked yesterday no complaints Objective Vital Signs Date Time Temp Pulse Resp B/P Pulse Ox O2 Delivery O2 Flow Rate FiO2 06/16/17 08:00 97.5 66 16 124/62 98 06/15/17 06:50 Nasal Cannula 2.0 Intake and Output 06/15/17 06/15/17 06/16/17 15:00 23:00 07:00 Intake Total 750 ml 2300 ml 500 ml Balance 750 ml 2300 ml 500 ml Exam vss heent negative lungs clear heart regular rhythm abdomen soft Results/Medications Result Diagram: 06/16/17 0451 06/16/17 0430 Results 24 hrs Laboratory Tests Test 06/16/17 04:30 06/16/17 04:51 Sodium Level 127 L Potassium Level 5.0 Chloride Level 94 L Carbon Dioxide Level 30 Anion Gap 8 Blood Urea Nitrogen 34 H Creatinine 1.25 H Glucose Level 112 # Calcium Level 8.1 L Total Bilirubin 0.3 Direct Bilirubin 0.00 Indirect Bilirubin 0.3 Aspartate Amino Transf (AST/SGOT) 44 Alanine Aminotransferase (ALT/SGPT) 41 Alkaline Phosphatase 54 Total Protein 5.3 L Albumin 2.8 L Globulin 2.50 Albumin/Globulin Ratio 1.12 White Blood Count 8.7 Red Blood Count 3.18 L Hemoglobin 9.6 L Hematocrit 29.9 L Mean Corpuscular Volume 94.0 Mean Corpuscular Hemoglobin 30.2 Mean Corpuscular Hemoglobin Concent 32.1 Red Cell Distribution Width 14.3 Platelet Count 140 Mean Platelet Volume 10.4 Neutrophils % 61.5 Lymphocytes % 30.2 Monocytes % 6.0 Eosinophils % 1.8 Basophils % 0.2 Nucleated Red Blood Cells % 0.0 Neutrophils # (Manual) 5.3 Lymphocytes # 2.6 Monocytes # 0.5 Eosinophils # 0.2 Basophils # 0.0 Nucleated Red Blood Cells # 0.0 Medications Current Medications Dextrose/Lactated Ringer's (D5-Lr) 1,000 ml @ 80 mls/hr [id number] IV Last administered on 06/14/17 13:58; Admin Dose 80 MLS/HR; Start 06/14/17 at 11:24 Oxycodone HCl (Roxicodone) 20 mg Q3H PRN PO PAIN LEVEL 8-10; Start 06/14/17 at 11:30 Oxycodone HCl (Roxicodone) 10 mg Q3H PRN PO PAIN LEVEL 4-7 Last administered on 06/16/17 08:54; Admin Dose 10 MG; Start 06/14/17 at 11:30 Oxycodone HCl (Roxicodone) 5 mg Q3H PRN PO PAIN LEVEL 1-3; Start 06/14/17 at 11: 30 Zolpidem Tartrate (Ambien) 5 mg HS PRN PO INSOMNIA Last administered on 23:58; Admin Dose 5 MG; Start 06/14/17 at 11:30 Miscellaneous Information (Note) NOTE XX ; Start 06/14/17 at 11:30 Aspirin (Ecotrin) 325 mg BID PO Last administered on 06/16/17 08:55; Admin Dose 325 MG; Start 06/15/17 at 09:00 Celecoxib (Celebrex) 200 mg BID PO Last administered on 06/16/17 08:56; Admin Dose 200 MG; Start 06/15/17 at 09:00 Dexamethasone (Decadron) 4 mg DAILY@07 IV Last administered on 06/16/17 06:55; Admin Dose 4 MG; Start 06/15/17 at 07:00; Stop 06/18/17 at 06:59 Pantoprazole (Protonix Tab) 40 mg DAILY@06 PO Last administered on 06/16/17 05: 48; Admin Dose 40 MG; Start 06/16/17 at 06:00 Docusate Sodium/ Ferrous Fumarate (Dannielle-Sequels) 1 tab BID PO Last administered on 06/16/17 08:56; Admin Dose 1 TAB; Start 06/15/17 at 09:00 Docusate Sodium (Colace) 200 mg BID PO Last administered on 06/16/17 08:54; Admin Dose 200 MG; Start 06/15/17 at 09:00; Stop 06/18/17 at 08:59 Simethicone (Mylicon) 80 mg TID PRN PO DISTENSION/GAS/BLOATING; Start 06/14/17 at 11:30 Senna/Docusate Sodium (Senokot-S) 2 tab BID PRN PO CONSTIPATION; Start 06/14/17 at 11:30 Magnesium Hydroxide (Milk Of Mag) 30 ml HS PRN PO CONSTIPATION; Start 06/14/17 at 11:30 Bisacodyl (Dulcolax Supp) 10 mg DAILY PRN NC CONSTIPATION; Start 06/14/17 at 11: 30 Sodium Biphosphate/ Sodium Phosphate (Fleet Enema) 133 ml DAILY PRN NC CONSTIPATION; Start 06/14/17 at 11:30 Diphenhydramine HCl (Benadryl) 25 mg Q4H PRN IM ITCHING OR RASH; Start 06/14/17 at 11:30 Ketorolac Tromethamine (Toradol) 15 mg DAILY@06 PRN INJ ADMINSTER BY SURGEON ONLY; Start 06/15/17 at 06:00; Stop 06/19/17 at 05:59 Naloxone HCl (Narcan) 0.2 mg Q2M PRN IV DECREASED REPIRATORY RATE; Start at 11:30 Bupivacaine HCl (Marcaine 0.25% (Mpf) 30 ml) 30 ml DAILY INJ ; Start 06/15/17 at 06:00; Stop 06/18/17 at 05:59 Atorvastatin Calcium (Lipitor) 10 mg QHS PO Last administered on 06/15/17 20:24 ; Admin Dose 10 MG; Start 06/14/17 at 21:00 Fluticasone Propionate (Flonase 0.05% Nasal) 1 spray DAILY NASAL Last administered on 06/16/17 08:56; Admin Dose 1 SPRAY; Start 06/14/17 at 14:30 Multivitamins Therapeutic (Theragran) 1 tab DAILY PO Last administered on 08:54; Admin Dose 1 TAB; Start 06/15/17 at 09:00 Venlafaxine HCl (Effexor Xr) 75 mg DAILY PO Last administered on 06/16/17 08:54 ; Admin Dose 75 MG; Start 06/15/17 at 09:00 Loratadine (Claritin) 10 mg DAILY PO Last administered on 06/16/17 08:56; Admin Dose 10 MG; Start 06/15/17 at 09:00 Levothyroxine Sodium (Synthroid) 125 mcg DAILY@06 PO Last administered on 05:48; Admin Dose 125 MCG; Start 06/15/17 at 06:00 Lisinopril (Zestril) 40 mg DAILY PO Last administered on 06/16/17 08:54; Admin Dose 40 MG; Start 06/16/17 at 09:00 Hydrochlorothiazide (Hydrochlorothiazide) 25 mg DAILY PO Last administered on 08:55; Admin Dose 25 MG; Start 06/16/17 at 09:00 Miscellaneous Information (*Order Clarification Bulletin) Estradiol (Vagifem) 10 MCG, PLE... Q8H XX ; Start 06/16/17 at 08:00 Assessment/Plan Chief Complaint/Hosp Course post op doing well Problems: Additional Assessment/Plan medically stable management per thank you JUANIS Vogel MD Jun 16, 2017 09:39
[2017-06-16 14:00] VITALS: BP 124/60; RESP 14
[2017-06-16] MEDS: ATORVASTATIN 10 MG TAB PO SCH (19:55)
[2017-06-16 20:52] VITALS: BP 108/54; RESP 20
[2017-06-16] MEDS: ZOLPIDEM 5 MG TAB PO PRN (21:04)
[2017-06-17] MEDS: DEXTROSE 5%-LR 1,000 ML IV SCH ×2 (01:54→14:24)
[2017-06-17 03:18] VITALS: BP 99/50; RESP 20
[2017-06-17] MEDS: PANTOPRAZOLE (EC) 40 MG TAB PO SCH (06:47)
[2017-06-17] MEDS: LEVOTHYROXINE 125 MCG TAB PO SCH (06:47)
[2017-06-17] MEDS: DEXAMETHASONE 4 MG/ML 1 ML INJ IV SCH (06:47)
[2017-06-17 07:37] VITALS: BP 112/56; RESP 15
[2017-06-17] MEDS: ESTRADIOL 10 MCG XX SCH ×2 (08:00)
[2017-06-17] MEDS: [UNRECOGNIZED DRUG - OTHER] XX SCH ×2 (08:00)
[2017-06-17] MEDS: ASPIRIN (EC) 325 MG TAB PO SCH (08:54)
[2017-06-17] MEDS: LORATADINE 10 MG TAB PO SCH (08:54)
[2017-06-17] MEDS: CELECOXIB 200 MG CAP PO SCH (08:54)
[2017-06-17] MEDS: VENLAFAXINE (XR) 75 MG CAP PO SCH (08:54)
[2017-06-17] MEDS: MULTIVITAMINS THERAPEUTIC TAB PO SCH (08:54)
[2017-06-17] MEDS: oxyCODONE 5 MG TAB PO PRN (08:55)
[2017-06-17] MEDS: FLUTICASONE 0.05% 16 GM NAS SPRAY NASAL SCH (08:55)
[2017-06-17] MEDS: DOCUSATE SODIUM 100 MG CAP PO SCH (08:55)
[2017-06-17] MEDS: FERROUS FUMARATE (SR) TAB PO SCH (08:55)
[2017-06-17] MEDS: LISINOPRIL 20 MG TAB PO SCH (09:00)
[2017-06-17] MEDS: HYDROCHLOROTHIAZIDE 12.5 MG CAP PO SCH (09:00)
[2017-06-17 10:28] LABS: BASOPHILS % 0.1 % (0.0-2.0); EOSINOPHILS # 0.2 10^3/ul (0.0-0.5); EOSINOPHILS % 2.8 % (0.0-7.0); HEMATOCRIT 30.4 % (37.0-47.0); HEMOGLOBIN 10.2 g/dl (12.0-16.0); LYMPHOCYTES # 2.3 10^3/ul (0.8-2.9); LYMPHOCYTES % 30.7 % (15.0-51.0); MEAN CORPUSCULAR HEMOGLOBIN 31.6 pg (29.0-33.0); MEAN CORPUSCULAR HGB CONC 33.6 g/dl (32.0-37.0); MEAN CORPUSCULAR VOLUME 94.1 fl (82.0-101.0); MEAN PLATELET VOLUME 10.3 fl (7.4-10.4); MONOCYTE # 0.3 10^3/ul (0.3-0.9); MONOCYTES % 3.4 % (0.0-11.0); NEUTROPHILS % 62.7 % (39.0-77.0); PLATELET COUNT 170 10^3/UL (140-415); RED BLOOD COUNT 3.23 10^6/ul (4.20-5.40); RED CELL DISTRIBUTION WIDTH 14.4 % (11.5-14.5); WHITE BLOOD COUNT 7.4 10^3/ul (4.8-10.8)
[2017-06-17 13:49] VITALS: BP 121/56; RESP 15
--- NOTE | 2017-06-17 16:25 | HKNOTE ---
DATE OF SERVICE: 06/17/2017 Postoperative day 1. The patient is making excellent progress. She has been up and about with physical therapy. She has had minimal pain. She is pleased with the result of the surgery thus far. The dressings were changed. The wound is clean and healing well. The patient is able to straight leg raise, is able to extend and flex the knee against gravity to 95 degrees. No complaints. VITAL SIGNS: Afebrile. Hemoglobin 12.2, white cell count 7.4. Dictated By: Alec Mireles MD /patrick/tai /Document#: [id number]
--- NOTE | 2017-06-17 16:35 | HKNOTE ---
DATE OF SERVICE: 06/17/2017 The patient is on her 3rd postoperative day following right total knee replacement. She is making excellent progress. She is completely independent. She can walk 100 paces without a walking aid. She has minimal pain. She is ready to go home. Dressings were changed. The wound is clean and healing well. No sign of infection or inflammation. Temperature normal. Hemoglobin 12.2, white cell count 7.4. The patient is being discharged home. Arrangements have been made for home care and home physical therapy. She will be seen in my office in 2 weeks' time for re-evaluation. Dictated By: Alec Mireles MD /patrick/tai /Document#: [id number]
--- NOTE | 2017-06-19 07:25 | DS ---
Date/Time of Note Date/Time of Note DATE: 06/19/17 TIME: 07:23 Discharge Summary Admission/Discharge Info Admit Date/Time Jun 14, 2017 at 05:32 Discharge Date/Time Jun 17, 2017 at 16:05 Discharge Diagnosis Status Post Right Total Knee Replacement Patient Condition: Stable Hospital Course On the day of admission, the patient underwent right total knee arthroplasty Intraoperative complications: None Postoperative complications: None The patient was given prophylactic antibiotics and anticoagulants. On the day of surgery and first postoperative day patient was started on gait training and was taught usual restrictions following knee replacement Suction drain removed on the first postoperative day and the dressings were changed. The wound was found to be clean and healing well. There was no sign of infection. Pain cocktail given. On the second postoperative day, patient continued with inpatient PT. Dressings were changed. Wound was found to be clean and healing well. No signs of infection. Pain cocktail given. On the day of discharge, the wound was clean and healing well; there was no sign of infection. The dressings were changed. Discharge Temperature: 98.2 Discharge White Blood Cell Count: 7.4 Discharge Hemoglobin: 10.2 The patient was discharged home with home health. Arrangements were made for visiting nurses and home health/physical therapy. Tegaderm with pad also provided for patient. Instructions given on how to use to keep wound dry while showering. Patient may discontinue use of Tegaderm with pad after violet have been removed around 10 days postoperatively. The patient will be seen in office at scheduled postoperative evaluation date given on their preoperative exam. Should patient complain of any problems prior to scheduled postoperative evaluation date, they may call into outpatient clinic to determine if they need to be scheduled at sooner appointment to be seen immediately if needed. Discharge medications: As per medication reconciliation form Diet: Same as preadmission diet. This is Argelia Lott PA-C dictating discharge summary for Dr. Alce Mireles. Home Meds Reported Medications Multivitamin (MULTI VITAMIN DAILY) 1 Each Tablet, 1 TAB PO DAILY, TAB 06/14/17 Calcium Carbonate/Vitamin D3 (Calcium + Vitamin D Tablet) 1 Each Tablet, 1 EACH PO, TAB 06/14/17 Fluticasone Propionate* (Fluticasone Propionate* Nasal) 50 Mcg/[place] - 16 Gm [place].susp, 1 SPRAY NASAL DAILY, #1 BOTTLE TO EACH NOSTRIL 06/14/17 Estradiol (Vagifem) 10 Mcg Tablet, 10 MCG VAGINAL Q WEEK, TAB 06/14/17 Venlafaxine Hcl* (Effexor XR*) 75 Mg Tab.er.24, 75 MG PO DAILY, TAB.SA 06/14/17 Atorvastatin Calcium (Atorvastatin Calcium) 10 Mg Tablet, 10 MG PO QHS, #30 TAB 06/14/17 Sennosides/Docusate Sodium (SENNA-S TABLET) 1 Each Tablet, 1 EACH PO BID 11/01/13 Acetaminophen (TYLENOL 500 MG TAB) 500 Mg Tab, 1000 MG PO Q4 Y 11/01/13 [levothyroxine] No Conflict Check, 0.125 MG PO DAILY 10/30/13 [yolanda] No Conflict Check, 60 MG PO DAILY 10/30/13 Lisinopril-Hydrochlorothiazide (Lisinopril-HCTZ) 1 Tab Tablet, 1 TAB PO BID 10/30/13 Discontinued Reported Medications [aspirin] No Conflict Check, 81 MG PO DAILY 10/30/13 Follow-up Plan Follow-up 2 weeks status post surgery at appointment given to patient on her preoperative examination date. Primary Care Provider ARGELIA Pérez PA-C Jun 19, 2017 07:25
== END 2017-06-17 16:05 | disposition home health service (06) | DRG 470 ==
LOC: REC 05:32 → MS1 12:53
PROC: 0SRC0J9 Replacement of Right Knee Joint with Synthetic Substitute, Cemented, Open Approach (ICD-10-PCS; principal; 2017-06-14 07:30)
DX: M17.11 Unilateral primary osteoarthritis, right knee (principal); E88.81 Metabolic syndrome and other insulin resistance; I10 Essential (primary) hypertension; Z96.651 Presence of right artificial knee joint; E78.5 Hyperlipidemia, unspecified; E03.9 Hypothyroidism, unspecified; Z79.82 Long term (current) use of aspirin
CPT/HCPCS: 73560; 80053; 85025; 86850; 86900; 86901; 86920; 87070; 87075; 87086; 87102; 87116; 88304; 88311; 97110; 97116; 97161; 97167; 97530; J1940; C1776; J0131; J0735; J1100; J1885; J2250; J2274; J2405; J2710; J2795; J3010; J3370; J7120; J7121; J7999

== ENCOUNTER → 2017-07-06 | Outpatient (CLI) | payer MEDICARE, BC ==
[~2017-07-06] MED LIST changes: +ATOR10TA65 PO; +CALC-134 PO; +ESTR10TA VAGINAL; +FLUT16SP17 NASAL; +MULT-761 PO; +VENL75TA2 PO; -aspirin PO
--- NOTE | 2017-07-06 11:14 | PN ---
Date/Time of Note Date/Time of Note DATE: 07/06/17 TIME: 11:12 Outpatient Progress Note Chief Complaint 3 weeks status post right total knee replacement HPI 81-year-old female presents today for 3 week postoperative appointment status post right total knee replacement performed on 06/14/2017. Patient states that she is doing well. Denies any pain complaints. Continued to progress well performing home health. Denies any falls or injury. Denies any fever, chills or malaise. Denies any calf pain, chest pain/tightness or shortness of breath. So far patient states that she continues to improve without complication. Review of Systems Const: No Fever, no chills, no Fatigue, normal appetite, no diaphoresis. Resp: No SOB, no wheezing, no chest pain. CV: No chest pain, no palpitaions, no STRAUSS. Physical Exam General Appearance: well-developed, well-nourished, in no acute distress. Right knee: Surgical wound is clean dry and intact and healing well. No signs of infection. No tenderness to palpation on exam today. Patient is able to fully extend. Flexion up to 95 with using goniometer. 5/5 strength on resistance with flexion and extension. Gait is normal and nonantalgic. Allergies Coded Allergies: Penicillins (Verified Allergy, Unknown, HIVES, 06/14/17) Sulfa (Sulfonamide Antibiotics) (Verified Allergy, Unknown, BREAKOUT, ) Assessment/Plan Problems: (1) Status post total right knee replacement -Wound healing well after staple removal. No signs of infection. -Continue ASA 325 mg twice daily for DVT prophylaxis until 6 weeks status post surgery. -No signs of DVT. -Patient progressing well. -Follow-up at 6 week postop appointment. X-rays will be performed at 6 weeks postoperative appointment. -Patient made aware that they may follow-up sooner, should they experience any issues or complications as we will be glad to see them. -Order for outpatient physical therapy given today with focus on improved range of motion. Antibiotic card provided for patient. Patient made aware that dental prophylaxis will be necessary prior to any dental procedure for the remainder of their lifetime. Patient is aware that they must contact their dentist prior to any procedure to inform them of previous joint replacement with prosthesis implant so appropriate antibiotic may be prescribed to lower risk of joint infection status post surgery. Card will also serve as confirmation should patient be traveling and have to go through security such as at an airport. Medications Home Meds Reported Medications Multivitamin (MULTI VITAMIN DAILY) 1 Each Tablet, 1 TAB PO DAILY, TAB 06/14/17 Calcium Carbonate/Vitamin D3 (Calcium + Vitamin D Tablet) 1 Each Tablet, 1 EACH PO, TAB 06/14/17 Fluticasone Propionate* (Fluticasone Propionate* Nasal) 50 Mcg/[place] - 16 Gm [place].susp, 1 SPRAY NASAL DAILY, #1 BOTTLE TO EACH NOSTRIL 06/14/17 Estradiol (Vagifem) 10 Mcg Tablet, 10 MCG VAGINAL Q WEEK, TAB 06/14/17 Venlafaxine Hcl* (Effexor XR*) 75 Mg Tab.er.24, 75 MG PO DAILY, TAB.SA 06/14/17 Atorvastatin Calcium (Atorvastatin Calcium) 10 Mg Tablet, 10 MG PO QHS, #30 TAB 06/14/17 Sennosides/Docusate Sodium (SENNA-S TABLET) 1 Each Tablet, 1 EACH PO BID 11/01/13 Acetaminophen (TYLENOL 500 MG TAB) 500 Mg Tab, 1000 MG PO Q4 Y 11/01/13 [levothyroxine] No Conflict Check, 0.125 MG PO DAILY 10/30/13 [yolanda] No Conflict Check, 60 MG PO DAILY 10/30/13 Lisinopril-Hydrochlorothiazide (Lisinopril-HCTZ) 1 Tab Tablet, 1 TAB PO BID 10/30/13 ARGELIA VARGAS PA-C Jul 06, 2017 11:14
== END | disposition home or self-care (01) ==
LOC: HKI 10:38
DX: Z47.1 Aftercare following joint replacement surgery (principal); Z96.651 Presence of right artificial knee joint

== ENCOUNTER → 2017-07-27 | Outpatient (CLI) | payer MEDICARE, BC ==
--- NOTE | 2017-07-27 10:54 | RADRPT ---
PROCEDURE: XR Knee. CLINICAL INDICATION: Right knee arthroplasty TECHNIQUE: 3 views of the right knee are available for review. COMPARISON: 06/14/2017 FINDINGS: There has been recent right knee arthroplasty with femoral, tibial, and patellar components. There has been removal of the soft tissue drains and skin violet. Postsurgical soft tissue gas has resolv ed. No evidence of hardware failure. . No acute fracture or dislocation is seen. Alignment is ragini omic. IMPRESSION: 1. Recent right knee arthroplasty. RPTAT: QQ .Pierre Royal MD, MD Date Time Electronically viewed and signed by .Pierre Royal MD, on 07/27/2017 10:54 .L/
--- NOTE | 2017-07-27 11:22 | PN ---
Date/Time of Note Date/Time of Note DATE: 07/27/17 TIME: 11:18 Outpatient Progress Note Chief Complaint 6 weeks status post right total knee replacement HPI 81-year-old female presents today for 6 week postoperative appointment status post right total knee arthroplasty on 06/14/2017. Patient has no complaints at this time. She is doing well in regards to her right knee. She has returned to normal function. Patient is now walking independently for the past 3 weeks. Patient is very happy status post surgery as she has no complaints. Review of Systems Const: No Fever, no chills, no Fatigue, normal appetite, no diaphoresis. Resp: No SOB, no wheezing, no chest pain. CV: No chest pain, no palpitaions, no STRAUSS. Physical Exam Blood pressure is 149/67, temperature is 98.1, pulse is 84, respiratory rate is 12, height is 5 foot 5 inches, weight is 220 pounds General Appearance: well-developed, well-nourished, in no acute distress. Right knee: Well-healed surgical scar with appearance of small stitch abscess at the proximal wound. No tenderness to palpation. No draining fluid. Normal sensory examination to light touch. 0-127 on goniometer with range of motion on flexion/extension. 5/5 strength on resistance. Gait is normal and nonantalgic. Negative Homans sign. Imaging: X-ray of the Right knee performed on 07/27/2017 showing all components appearing well aligned, attached and integrated to the bone. No signs of any lucency between metal and bone. Allergies Coded Allergies: Penicillins (Verified Allergy, Unknown, HIVES, 06/14/17) Sulfa (Sulfonamide Antibiotics) (Verified Allergy, Unknown, BREAKOUT, ) Assessment/Plan Problems: (1) Status post total right knee replacement -Patient progressing well -Surgical wound continues to heal well. -No signs of infection or DVT on exam. Stitch abscess was drained today. Culture obtained. -Keflex 500 mg 1 tab p.o. 4 times daily 7 days #20 tablets provided for patient. Patient does have penicillin allergy but states that she has had amoxicillin with no issue. Keflex was prescribed due to low percentage of cross -reactivity. -X-rays showing no abnormalities in regards to prosthesis attachment to bone. -Range of motion is improved status post total knee replacement. -Antibiotic prophylaxis card provided today. -Follow-up one week for repeat evaluation status post incision and drainage to local stitch abscess which was also removed today. -Follow-up 6 months status post surgery. If patient is doing well at that time , possible follow-up on as-needed basis from that point. Dental prophylaxis discussed in detail today. Patient given prophylaxis card with antibiotic options. Should patient have allergy to specific medication ( eg penicillin) alternative options are also provided on the card. Patient is aware that antibiotics should be taken prior to any procedures to prevent increased risk of infection to the joint. Patient is aware that this will be for the rest of their life. Patient states understanding and compliance. Medications Home Meds Reported Medications Multivitamin (MULTI VITAMIN DAILY) 1 Each Tablet, 1 TAB PO DAILY, TAB 06/14/17 Calcium Carbonate/Vitamin D3 (Calcium + Vitamin D Tablet) 1 Each Tablet, 1 EACH PO, TAB 06/14/17 Fluticasone Propionate* (Fluticasone Propionate* Nasal) 50 Mcg/[place] - 16 Gm [place].susp, 1 SPRAY NASAL DAILY, #1 BOTTLE TO EACH NOSTRIL 06/14/17 Estradiol (Vagifem) 10 Mcg Tablet, 10 MCG VAGINAL Q WEEK, TAB 06/14/17 Venlafaxine Hcl* (Effexor XR*) 75 Mg Tab.er.24, 75 MG PO DAILY, TAB.SA 06/14/17 Atorvastatin Calcium (Atorvastatin Calcium) 10 Mg Tablet, 10 MG PO QHS, #30 TAB 06/14/17 Sennosides/Docusate Sodium (SENNA-S TABLET) 1 Each Tablet, 1 EACH PO BID 11/01/13 Acetaminophen (TYLENOL 500 MG TAB) 500 Mg Tab, 1000 MG PO Q4 Y 11/01/13 [levothyroxine] No Conflict Check, 0.125 MG PO DAILY 10/30/13 [yolanda] No Conflict Check, 60 MG PO DAILY 10/30/13 Lisinopril-Hydrochlorothiazide (Lisinopril-HCTZ) 1 Tab Tablet, 1 TAB PO BID 10/30/13 ARGELIA VARGAS PA-C Jul 27, 2017 11:22
== END | disposition home or self-care (01) ==
LOC: HKI 10:19
DX: Z09 Encounter for follow-up examination after completed treatment for conditions other than malignant neoplasm (principal); Z96.651 Presence of right artificial knee joint; Z88.0 Allergy status to penicillin; Z88.2 Allergy status to sulfonamides

== ENCOUNTER → 2017-08-02 | Outpatient (CLI) | payer MEDICARE, BC ==
--- NOTE | 2017-08-03 08:39 | HKNOTE ---
DATE OF SERVICE: Patient comes in for a 6-week checkup on her right knee. She is very pleased with the results of th e surgery. The small stitch abscess has now completely healed. Cultures obtained from that suture abscess at the last visit showed nonpathogenic type bacteria. The knee range of motion is 0 to 120 degrees. Imaging of the right knee obtained today at the [facility] was reviewed (3 views right knee). All components are well aligned and well attached to the bone. MANAGEMENT: The patient will finish up with her current series of physical therapy and will be seen again in 4-1/2 months for reevaluation. We have already given her a gentle card and advised her ab out the necessity for taking antibiotics for infections or dental work. Dictated By: TUNG MILLER/EDI Conf#: [id number] DID#: [id number]
== END | disposition home or self-care (01) ==
LOC: HKI 09:50
DX: Z09 Encounter for follow-up examination after completed treatment for conditions other than malignant neoplasm (principal); L02.415 Cutaneous abscess of right lower limb
CPT/HCPCS: G0463